=== PATIENT | male | born 1940 | race Asian ===

== ENCOUNTER 2021-02-21 22:26 | Emergency (ER) | payer OTHER ==
[2021-02-21 22:34] VITALS: TEMP 98.6; BMI 21.9
[2021-02-21 22:57] VITALS: BP 134/87; PULSE 100
[2021-02-21] MEDS ORDERED: CIPROFLOXACIN 500 MG TABLET (RESTRICTED TO ID) PO ONE (23:12)
[2021-02-21] MEDS ORDERED: CIPROFLOXACIN 250 MG TABLET (RESTRICTED TO ID) PO ONE (23:14)
== END 2021-02-21 23:18 | disposition home or self-care (01) ==
LOC: FER 22:26
DX: R33.9 Retention of urine, unspecified (principal)
CPT/HCPCS: 81003; 81015; 87086; 99283-25

== ENCOUNTER 2021-04-11 01:09 | Emergency (ER) | payer OTHER, MEDICARE ==
[2021-04-11 01:14] VITALS: BP 195/90; PULSE 78; TEMP 97.5; BMI 23.5
[2021-04-11] MEDS ORDERED: CIPROFLOXACIN 500 MG TABLET (RESTRICTED TO ID) PO ONE (01:28)
[2021-04-11] MEDS ORDERED: CIPROFLOXACIN 250 MG TABLET (RESTRICTED TO ID) PO ONE (01:45)
[2021-04-11 02:51] LABS: EPI CELLS 1 /uL (0-25.1); HYALINE CASTS 3 /uL (0-3.1); PH,URINE 5.5 (5.0-8.0); URINE APPEARANCE CLOUDY; URINE BACTERIA 0 /uL (0-1359); URINE BILIRUBIN NEGATIVE (NEGATIVE); URINE COLOR RED; URINE GLUCOSE (UA) NEGATIVE (NEGATIVE); URINE KETONE NEGATIVE (NEGATIVE); URINE LEUK ESTERASE 2+ (NEGATIVE); URINE NITRITE NEGATIVE (NEGATIVE); URINE PROTEIN 3+ (NEGATIVE); URINE UROBILINOGEN 0.2 mg/dL (0.2-1.0); URINE WBC 745 /uL (0-25.8)
[2021-04-11 08:20] LABS: URINE RBC 8963.8 /uL (0-23.9); YEAST NON SEEN (NEGATIVE)
== END 2021-04-11 02:19 | disposition home or self-care (01) ==
LOC: FER 01:09
DX: R33.9 Retention of urine, unspecified (principal)
CPT/HCPCS: 81003; 87086; 99283-25

== ENCOUNTER 2021-05-23 16:24 | Inpatient (IN) | payer OTHER, MEDICARE ==
[2021-05-23 17:02] VITALS: BMI 24.3
[2021-05-23 18:52] LABS: CALCIUM 9.6 mg/dl (8.5-10); CREATININE 1.3 mg/dl (0.55-1.3)
[2021-05-23 19:29] LABS: BASO % 0.2 % (0-2.0); EOS % 0.7 % (0-4.5); HEMOGLOBIN 15.9 GM/dL (11.7-16.9); LYMPH % 17.5 % (8-40); MCHC 32.6 g/dl (32.0-35.9); MEAN CELL VOLUME 95.3 fl (80-96); MEAN PLT VOLUME 8.1 fl (7.5-11.1); MONO % 5.3 % (3.8-10.2); NEUT % 76.3 % (42.8-82.8); PLATELET COUNT 264 10^3/uL (134-434); RBC 5.14 M/mm3 (4.00-5.60); RDW 14.5 % (11.9-15.9); WHITE BLOOD COUNT 9.1 K/mm3 (4.0-10.0)
[2021-05-23] MEDS ORDERED: POLYETHYLENE GLYCOL (HEALTHYLAX) 3350 17 GM PACKET PO PRN (20:43)
[2021-05-23] MEDS ORDERED: ACETAMINOPHEN 325 MG TABLET (FP) PO PRN (20:43)
[2021-05-24] MEDS ORDERED: TAMSULOSIN HCL 0.4 MG CAP PO ONE (01:57)
[2021-05-24 07:54] LABS: CALCIUM 8.9 mg/dl (8.5-10); CREATININE 1.1 mg/dl (0.55-1.3)
[2021-05-24 07:55] LABS: ACTIVATED PTT 28.9 SECONDS (25.2-36.5)
[2021-05-24 07:59] LABS: INR 1.03 (0.83-1.09); PROTHROMBIN TIME (PATIENT) 11.4 SEC (9.7-13.0)
[2021-05-24 08:40] VITALS: BP 126/96; PULSE 73; TEMP 99.2
[2021-05-24 09:25] LABS: BASO % 0.2 % (0-2.0); EOS % 1.3 % (0-4.5); HEMATOCRIT 44.9 % (35.4-49); HEMOGLOBIN 14.7 GM/dL (11.7-16.9); LYMPH % 19.1 % (8-40); MCH 30.8 pg (25.7-33.7); MCHC 32.7 g/dl (32.0-35.9); MEAN CELL VOLUME 94.4 fl (80-96); MEAN PLT VOLUME 8.3 fl (7.5-11.1); MONO % 6.9 % (3.8-10.2); NEUT % 72.5 % (42.8-82.8); PLATELET COUNT 236 10^3/uL (134-434); RBC 4.76 M/mm3 (4.00-5.60); RDW 14.3 % (11.9-15.9); WHITE BLOOD COUNT 8.2 K/mm3 (4.0-10.0)
[2021-05-24] MEDS ORDERED: FINASTERIDE 5 MG TABLET (FP) PO SCH (10:00)
== END 2021-05-24 12:58 | disposition home or self-care (01) | DRG 726 ==
LOC: FER 16:24 → FM/S 21:14
PROVIDERS: ADMIT Internal Medicine; ATTEND Nurse Practitioner Acute Care
DX: N40.1 Benign prostatic hyperplasia with lower urinary tract symptoms (principal); R33.8 Other retention of urine; R35.1 Nocturia; R31.0 Gross hematuria
CPT/HCPCS: 36415; 80048; 81003; 81015; 83735; 85025; 85610; 85730; 87086; 87186; 93005; 93010; 99285-25; C9803; U0003; U0005

== ENCOUNTER 2021-06-10 03:48 | Emergency (ER) | payer OTHER, MEDICARE ==
[2021-06-10 03:56] VITALS: PULSE 96; TEMP 97.8; BMI 24.3
[2021-06-10] MEDS ORDERED: CIPROFLOXACIN 500 MG TABLET (RESTRICTED TO ID) PO ONE (04:12)
[2021-06-10] MEDS ORDERED: CIPROFLOXACIN 250 MG TABLET (RESTRICTED TO ID) PO ONE (04:14)
[2021-06-10 04:35] VITALS: BP 142/83
[2021-06-10 05:55] LABS: EPI CELLS 4 /uL (0-25.1); HYALINE CASTS 2 /uL (0-3.1); URINE APPEARANCE CLOUDY; URINE BACTERIA 783 /uL (0-1359); URINE BILIRUBIN NEGATIVE (NEGATIVE); URINE COLOR ORANGE; URINE GLUCOSE (UA) NEGATIVE (NEGATIVE); URINE KETONE NEGATIVE (NEGATIVE); URINE LEUK ESTERASE 3+ (NEGATIVE); URINE NITRITE NEGATIVE (NEGATIVE); URINE PROTEIN 1+ (NEGATIVE); URINE RBC 1733 /uL (0-23.9); URINE UROBILINOGEN 0.2 mg/dL (0.2-1.0); URINE WBC 2290 /uL (0-25.8)
== END 2021-06-10 04:35 | disposition home or self-care (01) ==
LOC: FER 03:48
DX: R33.9 Retention of urine, unspecified (principal)
CPT/HCPCS: 81003; 87086; 87186; 99283-25

== ENCOUNTER 2021-06-17 09:28 | Emergency (ER) | payer MEDICARE, OTHER ==
[2021-06-17 09:43] VITALS: BP 160/90; PULSE 101; TEMP 99; BMI 24.3
== END 2021-06-17 10:03 | disposition home or self-care (01) ==
LOC: FER 09:28 → SUPCPDRO 09:28 → FER 10:03
DX: R33.9 Retention of urine, unspecified (principal); T83.091A Other mechanical complication of indwelling urethral catheter, initial encounter
CPT/HCPCS: 99281-25

== ENCOUNTER 2023-08-04 08:00 | Emergency (ER) | payer MEDICARE, OTHER ==
[2023-08-04 08:42] VITALS: BP 155/105; PULSE 103; RESP 16; TEMP 98.7; BMI 24.3
[2023-08-04] MEDS ORDERED: cefTRIAXone SODIUM 1 GM VIAL ONE (10:12)
[2023-08-04 10:26] LABS: CALCIUM 9.2 mg/dl (8.5-10.1); CREATININE 0.8 mg/dl (0.6-1.3); POTASSIUM 4.3 mmol/L (3.5-5.1)
[2023-08-04] MEDS: CEFTRIAXONE 1 GM in DEXTROSE 5%-WATER - 100 ML IVPB ONE (10:28)
== END 2023-08-04 11:34 | disposition home or self-care (01) ==
LOC: FER 08:00
PROC: 3E03329 Introduction of Other Anti-infective into Peripheral Vein, Percutaneous Approach (ICD-10-PCS; principal; 2023-08-04)
PROC: 0T2BX0Z Change Drainage Device in Bladder, External Approach (ICD-10-PCS; 2023-08-04)
DX: R33.9 Retention of urine, unspecified (principal)
CPT/HCPCS: 36415; 80048; 81003; 81015; 87086; 99284-25

== ENCOUNTER 2023-08-07 12:52 | Emergency (ER) | payer OTHER ==
[2023-08-07 15:21] VITALS: BP 162/91; PULSE 98; RESP 18; TEMP 98.2; BMI 26.4
[2023-08-07 15:52] LABS: CALCIUM OXALATE CRYSTALS FEW /hpf (NONE SEEN); EPITHELIAL CELLS 0-5 /hpf
== END 2023-08-07 16:31 | disposition home or self-care (01) ==
LOC: FER 12:52
PROC: 0T2BX0Z Change Drainage Device in Bladder, External Approach (ICD-10-PCS; principal; 2023-08-07)
DX: R33.9 Retention of urine, unspecified (principal); R31.9 Hematuria, unspecified
CPT/HCPCS: 81003; 81015; 87086; 99283-25

== ENCOUNTER 2023-08-07 20:41 | Emergency (ER) | payer OTHER ==
[2023-08-07 20:47] VITALS: BP 114/73; PULSE 85; RESP 18; TEMP 98.5; BMI 26.4
== END 2023-08-07 21:00 | disposition home or self-care (01) ==
LOC: FER 20:41
PROC: 0T2BX0Z Change Drainage Device in Bladder, External Approach (ICD-10-PCS; principal; 2023-08-07)
DX: T83.9XXA Unspecified complication of genitourinary prosthetic device, implant and graft, initial encounter (principal); R33.9 Retention of urine, unspecified
CPT/HCPCS: 81003; 81015; 87086; 99283-25

== ENCOUNTER 2023-08-25 01:42 | Emergency (ER) | payer OTHER ==
[2023-08-25 02:09] VITALS: BP 162/79; PULSE 71; RESP 16; TEMP 97.9; BMI 28.5
[2023-08-25] MEDS ORDERED: CIPROFLOXACIN 250 MG TABLET (RESTRICTED TO ID) PO ONE (02:13)
[2023-08-25] MEDS: CIPROFLOXACIN 500 MG TABLET (RESTRICTED TO ID) PO ONE (02:19)
[2023-08-25 03:25] LABS: EPI CELLS 13 /uL (0-25.1); HYALINE CASTS 2 /uL (0-3.1); PH,URINE 5.5 (5.0-8.0); URINE BACTERIA >9,000 /uL (0-1359); URINE BILIRUBIN NEGATIVE (NEGATIVE); URINE COLOR YELLOW; URINE GLUCOSE (UA) NEGATIVE (NEGATIVE); URINE KETONE NEGATIVE (NEGATIVE); URINE LEUK ESTERASE 3+ (NEGATIVE); URINE NITRITE POSITIVE (NEGATIVE); URINE PROTEIN 2+ (NEGATIVE); URINE UROBILINOGEN 0.2 mg/dL (0.2-1.0); URINE WBC 11812 /uL (0-25.8)
[2023-08-25 04:15] LABS: URINE APPEARANCE CLOUDY; URINE RBC 445 /uL (0-23.9); YEAST NONE SEEN (NEGATIVE)
== END 2023-08-25 02:26 | disposition home or self-care (01) ==
LOC: FER 01:42
PROC: 0T9B70Z Drainage of Bladder with Drainage Device, Via Natural or Artificial Opening (ICD-10-PCS; principal; 2023-08-25)
DX: N40.1 Benign prostatic hyperplasia with lower urinary tract symptoms (principal); R33.8 Other retention of urine
CPT/HCPCS: 81003; 87086; 87186; 99283-25

== ENCOUNTER 2023-09-03 09:29 | Emergency (ER) | payer OTHER ==
[2023-09-03 10:00] VITALS: BP 153/100; PULSE 89; RESP 16; TEMP 98.4; BMI 24.1
== END 2023-09-03 10:06 | disposition home or self-care (01) ==
LOC: FER 09:29
PROC: 0T9B70Z Drainage of Bladder with Drainage Device, Via Natural or Artificial Opening (ICD-10-PCS; principal; 2023-09-03)
DX: T83.091A Other mechanical complication of indwelling urethral catheter, initial encounter (principal)
CPT/HCPCS: 51702; 99283-25

== ENCOUNTER 2023-09-23 06:08 | Emergency (ER) | payer OTHER ==
[2023-09-23 06:22] VITALS: BP 178/103; PULSE 80; RESP 18; TEMP 97.6; BMI 21.1
== END 2023-09-23 08:57 | disposition home or self-care (01) ==
LOC: FER 06:08
DX: R33.9 Retention of urine, unspecified (principal)
CPT/HCPCS: 99283-25